=== PATIENT | female | born 1990 | race American Indian/Alaskan Native ===

== ENCOUNTER 2018-07-22 18:22 | Inpatient (IN) | payer OTHER ==
[2016-07-03 21:17] VITALS: BMI 31.2
[2018-07-22] MEDS: Lactated Ringer's 1,000 ML IV SCH (19:30)
[2018-07-22] MEDS ORDERED: Lactated Ringer's 1,000 ML IV SCH (19:30)
[2018-07-22] MEDS ORDERED: Penicillin G 5 Million Unit Vial IVPB ONE ×2 (19:53→20:21)
[2018-07-22] MEDS ORDERED: Lactated Ringer's 1,000 ML IV ONE (19:53)
[2018-07-22 20:50] LABS: BASO % 0.2 % (0.0-2.0); EOS % 0.3 % (0.0-4.0); HEMOGLOBIN 13.5 g/dL (11.0-16.0); LYMPH # 1.3 K/uL (1.0-4.3); LYMPH % 20.6 % (20.0-40.0); MEAN CELL VOLUME 85.2 fL (81.0-99.0); MEAN CORPUSCULAR HEMOGLOBIN 30.1 pg (27.0-31.0); MEAN CORPUSCULAR HGB CONC 35.4 g/dL (33.0-37.0); MEAN PLATELET VOLUME 10.2 fL (7.2-11.7); MONO # 0.6 K/uL (0.0-0.8); MONO % 8.8 % (0.0-10.0); NEUT # 4.4 K/uL (1.8-7.0); NEUT % 70.1 % (50.0-75.0); NRBC % 0.2 % (0.0-2.0); RBC 4.49 Mil/uL (3.80-5.20); RED CELL DISTRIBUTION WIDTH 14.2 % (11.5-14.5); WHITE BLOOD COUNT 6.3 K/uL (4.8-10.8)
[2018-07-22 20:52] LABS: SQUAMOUS EPITHIAL 1 /hpf (0-5); URINE BILIRUBIN NEGATIVE (NEGATIVE); URINE BLOOD NEGATIVE (NEGATIVE); URINE CLARITY Clear (Clear); URINE COLOR Yellow (YELLOW); URINE GLUCOSE (UA) NORMAL (Normal); URINE LEUKOCYTE ESTERASE NEG Leu/uL (Negative); URINE PROTEIN NEGATIVE (NEGATIVE); URINE UROBILINOGEN NORMAL mg/dL (0.2-1.0)
--- NOTE | 2018-07-22 21:04 | OBHP ---
Datetime: 07/22/2018 20:56 IP Adm Impression: Term, intrauterine ; No Active Labor IP Admit Plan: Admit to unit; Initiate labor protocol Admit Comment, IP Provider: 27 yo female with an IUP at 40.1 weeks Admitted for IOL per MFM recommendation and for IUGR NST Reavtive/Ocassional contractions. Cervidil placed with ease PMHx, Negative PSHx, Negative MEDS, PNV NKDA Social HX Negative x 3 Consented for Pelvic Type - PN: Adequate Extremities - PN: Normal Abdomen - PN: Normal Back - PN: Normal Breast - PN: Not Done Lungs - PN: Normal Heart - PN: Normal Thyroid - PN: Normal Neurologic - PN: Normal HEENT - PN: Normal General - PN: Normal Presentation-Admit: Vertex FHR - Baseline A Provider: 140 Membranes, Provider: Intact Contraction Comments Provider: Ocassional Gestation - Est Wks by US: 40.1 EGA AdmitDate IP: 40.1 Vital Signs Provider: Reviewed; Within Normal Limits IP Chief Complaint: Scheduled induction of labor NICHD Variability Prov Fetus A: Moderate 6-25bpm NICHD Accel Fetus A IP Provider: 10X10 NICHD Decel Fetus A IP Provider: None Dilatation, Provider: 0 Effacement, Provider: 30 Station, Provider: -3 Genitourinary Exam: Normal DTRs - PN: Normal
[2018-07-22 21:11] LABS: ALB/GLOB RATIO 1.1 (1.0-2.1); ALBUMIN 3.6 g/dL (3.5-5.0); ALT/SGPT 9 U/L (9-52); AST/SGOT 15 U/L (14-36); BLOOD UREA NITROGEN 13 mg/dL (7-17); CALCIUM 9.5 mg/dl (8.6-10.4); GFR NON-AFRICAN AMERICAN > 60
[2018-07-23] MEDS: Lactated Ringer's 1,000 ML IV SCH (05:15)
--- NOTE | 2018-07-23 07:38 | OBADHP ---
Datetime: 07/22/2018 20:56 Admit Comment, IP Provider: 27 yo female with an IUP at 40.1 weeks Admitted for IOL per MFM recommendation and for IUGR NST Reactive/Ocassional contractions Unfavorable cervix. Cervidil placed with ease PMHx, Negative PSHx, Negative MEDS, PNV NKDA Social HX Negative x 3 Consented for Admit Pelvic Type - PN: Adequate Extremities - PN: Normal Abdomen - PN: Normal Back - PN: Normal Breast - PN: Not Done Lungs - PN: Normal Heart - PN: Normal Thyroid - PN: Normal Neurologic - PN: Normal HEENT - PN: Normal General - PN: Normal Presentation-Admit: Vertex FHR - Baseline A Provider: 140 Membranes, Provider: Intact Contraction Comments Provider: Ocassional Gestation - Est Wks by US: 40.1 Vital Signs Provider: Reviewed; Within Normal Limits IP Chief Complaint: Scheduled induction of labor NICHD Variability Prov Fetus A: Moderate 6-25bpm NICHD Accel Fetus A IP Provider: 10X10 NICHD Decel Fetus A IP Provider: None Dilatation, Provider: 0 Effacement, Provider: 30 Station, Provider: -3 Genitourinary Exam: Normal DTRs - PN: Normal EGA AdmitDate IP: 40.1 IP Adm Impression: Term, intrauterine ; No Active Labor IP Admit Plan: Admit to unit; Initiate labor protocol
--- NOTE | 2018-07-23 07:47 | OBPN ---
Datetime: 07/22/2018 20:56 IP Progress Impression: Reassuring heart rate; Reactive non-stress test IP Informed Consent Obtain: Vaginal Delivery IP Procedures: Sterile Vag Exam IP Progress Plan: Continue present management; Induction; Antibiotic therapy Membranes, Provider: Intact Contraction Comments Provider: Ocassional FHR - Baseline A Provider: 140 Gestation - Est Wks by US: 40.1 Presentation-Admit: Vertex IP Progress Note Comment: SVE /-3 VSS Afebrile Cervidil removed Will give liquid diet FHT's reactive and reassuring Will continue GBS prophylaxis Discuss with patient benefits and riska of Epidural and she will consider it Dr. Adams here and will assess patient for next step Vital Signs Provider: Reviewed; Within Normal Limits NICHD Accel Fetus A IP Provider: 10X10 NICHD Variability Prov Fetus A: Moderate 6-25bpm Dilatation, Provider: 0 Effacement, Provider: 30 Station, Provider: -3 NICHD Decel Fetus A IP Provider: None
[2018-07-23] MEDS ORDERED: Bupivacaine HCl/FentaNYL Cit 100 ML EPI ONE (08:47)
[2018-07-23] MEDS ORDERED: Oxytocin 30 UNIT 30 UNITS/500 ML BAG IV SCH (09:15)
[2018-07-23] MEDS ORDERED: Oxytocin 30 UNIT 30 UNITS/500 ML BAG IV ONE (09:18)
[2018-07-23] MEDS ORDERED: Oxycodone/Acetaminophen 5/325 mg Tab PO PRN ×2 (13:25)
--- NOTE | 2018-07-23 16:00 | OBDS ---
DELIVERY PERSONNEL Delivery Doctor: Joelle Adams MD [employer] Operator: Georgina Francois RN Anesthesiologist: Dr Chau MATERNAL INFORMATION Delivery Anesthesia: Epidural Medications in Delivery: 30 units of pitocin in 500 ml NS Estimated Blood Loss (ml): 200 Placenta Cultured: Yes Maternal Complications: None Provider Comments: pt was fully dilated and pushing, atruatmc spontenaoud eilvery of head cmpound le ft hand, no nuchal cord noted. atraumatic, spontnaoeu delivery of anterior followed by posterior shou lder followed by delivery of elvie body.b oth oral and nasal passages of elvie baby were bulb suctined. u mbical cord was calmped adn cut. Baby handed to mother on abdomen wtih rn asssiant. cord blood adn co rd gases collected adn sent x 2. spontaneou delivery of itnact placenta with membranes. fundus firm. good hemsetoiss, no compilcations. live femlae ifnant agpars 9,9 weigh of 7lbs1 oucnes ebl 200ml no complications LABOR SUMMARY EDC: 07/21/2018 00:00 No. Babies in Womb: 1 LABOR INFORMATION Reason for Induction: Other Reason for Induction Other: IUGR Onset of Labor: 07/23/2018 12:17 Complete Dilatation: 07/23/2018 12:51 Cervical Ripening Agents: Cervidil Oxytocin: Augmentation Group B Beta Strep: Positive Antibiotics # of Doses: 4 Antibiotics Time of Last Dose: 0809 Steroids Given: None MEMBRANES Membranes Rupture Method: Artificial Rupture of Membranes: 07/23/2018 10:02 Length of Rupture (hrs): 3.07 Amniotic Fluid Color: Clear Amniotic Fluid Amount: Moderate Amniotic Fluid Odor: None STAGES OF LABOR Stage 1 hrs: 0 Stage 1 min: 34 Stage 2 hrs: 0 Stage 2 min: 15 Stage 3 hrs: 0 Stage 3 min: 4 Total Time in Labor hrs: 0 Total Time in Labor min: 53 VAGINAL DELIVERY Episiotomy: None Laceration Extension: N/A Laceration Type: None Laceration Repair Note: pt was fully dilated and pushing, atruatmc spontenaoud eilvery of head cmpou nd left hand, no nuchal cord noted. atraumatic, spontnaoeu delivery of anterior followed by posterior shoulder followed by delivery of elvie body.b oth oral and nasal passages of elvie baby were bulb suctin ed. umbical cord was calmped adn cut. Baby handed to mother on abdomen wtih rn asssiant. cord blood a dn cord gases collected adn sent x 2. spontaneou delivery of itnact placenta with membranes. fundus f irm. good hemsetoiss, no compilcations. live femlae ifnant agpars 9,9 weigh of 7lbs1 oucnes ebl 200ml no complications Initial Vag Sponge Count: 11 Final Vag Sponge Count: 11 Initial Vag Sharps Count: 0 Final Vag Sharps Count: 0 Sponge Count Correct: Yes Sharps Count Correct: Yes BABY A INFORMATION Delivery Date/Time: 07/23/2018 13:06 Method of Delivery: Vaginal Born in Route : No : N/A Forceps: N/A Vacuum Extraction: N/A Shoulder Dystocia : No SHOULDER DYSTOCIA BABY A Delivery Date/Time: 07/23/2018 13:06 PRESENTATION/POSITION BABY A Presentation: Cephalic Cephalic Presentation: Vertex Vertex Position: Right Occipital Anterior Breech Presentation: N/A PLACENTA INFORMATION BABY A Placenta Delivery Time : 07/23/2018 13:10 Placenta Method of Delivery: Spontaneous Placenta Status: Delivered SCORES BABY A Heart Rate 1 min: >100 bpm Resp Effort 1 min: Good Cry Reflex Irritability 1 min: Cough or Sneeze or Pulls Away Muscle Tone 1 min: Active Motion Color 1 min: Body [place], Extremities Blue Resuscitation Effort 1 min: Tactile Stimulation SCORE 1 MIN: 9 Heart Rate 5 min: >100 bpm Resp Effort 5 min: Good Cry Reflex Irritability 5 min: Cough or Sneeze or Pulls Away Muscle Tone 5 min: Active Motion Color 5 min: Body [place], Extremities Blue Resuscitation Effort 5 min: N/A SCORE 5 MIN: 9 INFANT INFORMATION BABY A Gestational Age at Delivery: 40.2 Gestational Status: Term Outcome : Liveborn Condition : Stable Sex: Female IDENTIFICATION/MEDS BABY A ID Band Number: [id number] ID Band Location: Left Leg; Left Arm Sensor Applied: Yes Sensor Number: [id number] Sensor Location : Cord Clamp Vitamin K Given : Not Given Erythromycin Given: Not Given WEIGHT/LENGTH BABY A Birthweight (gms): 3210 Infant Weight (lb): 7 Infant Weight (oz): 1 Infant Length Inches: 19.00 Infant Length cms: 48.3 CORD INFORMATION BABY A No. Cord Vessels: 3 Nuchal Cord : N/A Cord pH Baby Venous: 7.30 Cord Blood Taken: Yes Suction: Mouth; Nose ASSESSMENT BABY A Complications: None Physical Findings at Delivery: Molding of the Head Respirations: Appears Normal Automotive Services Manager/ALS Called : No Care By: Aissatou Couch RN Transferred To: Remains with Mother
--- NOTE | 2018-07-23 16:11 | OBDS ---
DELIVERY PERSONNEL Delivery Doctor: Joelle Adams MD [employer]er: Georgina Francois RN Anesthesiologist: Dr Chau MATERNAL INFORMATION Delivery Anesthesia: Epidural Medications in Delivery: 30 units of pitocin in 500 ml NS Estimated Blood Loss (ml): 200 Placenta Cultured: Yes Maternal Complications: None Provider Comments: pt was fully dilated and pushing, atruatmc spontenaoud eilvery of head cmpound le ft hand, no nuchal cord noted. atraumatic, spontnaoeu delivery of anterior followed by posterior shou lder followed by delivery of elvie body.b oth oral and nasal passages of elvie baby were bulb suctined. u mbical cord was calmped adn cut. Baby handed to mother on abdomen wtih rn asssiant. cord blood adn co rd gases collected adn sent x 2. spontaneou delivery of itnact placenta with membranes. fundus firm. good hemsetoiss, no compilcations. live femlae ifnant agpars 9,9 weigh of 7lbs1 oucnes ebl 200ml no complications LABOR SUMMARY EDC: 07/21/2018 00:00 No. Babies in Womb: 1 LABOR INFORMATION Reason for Induction: Other Reason for Induction Other: IUGR Onset of Labor: 07/23/2018 12:17 Complete Dilatation: 07/23/2018 12:51 Cervical Ripening Agents: Cervidil Oxytocin: Augmentation Group B Beta Strep: Positive Antibiotics # of Doses: 4 Antibiotics Time of Last Dose: 0809 Steroids Given: None MEMBRANES Membranes Rupture Method: Artificial Rupture of Membranes: 07/23/2018 10:02 Length of Rupture (hrs): 3.07 Amniotic Fluid Color: Clear Amniotic Fluid Amount: Moderate Amniotic Fluid Odor: None STAGES OF LABOR Stage 1 hrs: 0 Stage 1 min: 34 Stage 2 hrs: 0 Stage 2 min: 15 Stage 3 hrs: 0 Stage 3 min: 4 Total Time in Labor hrs: 0 Total Time in Labor min: 53 VAGINAL DELIVERY Episiotomy: None Laceration Extension: N/A Laceration Type: None Initial Vag Sponge Count: 11 Final Vag Sponge Count: 11 Initial Vag Sharps Count: 0 Final Vag Sharps Count: 0 Sponge Count Correct: Yes Sharps Count Correct: Yes BABY A INFORMATION Infant Delivery Date/Time: 07/23/2018 13:06 Method of Delivery: Vaginal Born in Route : No : N/A Forceps: N/A Vacuum Extraction: N/A Shoulder Dystocia : No SHOULDER DYSTOCIA BABY A Infant Delivery Date/Time: 07/23/2018 13:06 PRESENTATION/POSITION BABY A Presentation: Cephalic Cephalic Presentation: Vertex Vertex Position: Right Occipital Anterior Breech Presentation: N/A PLACENTA INFORMATION BABY A Placenta Delivery Time : 07/23/2018 13:10 Placenta Method of Delivery: Spontaneous Placenta Status: Delivered SCORES BABY A Heart Rate 1 min: >100 bpm Resp Effort 1 min: Good Cry Reflex Irritability 1 min: Cough or Sneeze or Pulls Away Muscle Tone 1 min: Active Motion Color 1 min: Body [place], Extremities Blue Resuscitation Effort 1 min: Tactile Stimulation SCORE 1 MIN: 9 Heart Rate 5 min: >100 bpm Resp Effort 5 min: Good Cry Reflex Irritability 5 min: Cough or Sneeze or Pulls Away Muscle Tone 5 min: Active Motion Color 5 min: Body [place], Extremities Blue Resuscitation Effort 5 min: N/A SCORE 5 MIN: 9 INFORMATION BABY A Gestational Age at Delivery: 40.2 Gestational Status: Term Infant Outcome : Liveborn Infant Condition : Stable Sex: Female IDENTIFICATION/MEDS BABY A ID Band Number: [id number] ID Band Location: Left Leg; Left Arm Sensor Applied: Yes Sensor Number: [id number] Sensor Location : Cord Clamp Vitamin K Given : Not Given Erythromycin Given: Not Given WEIGHT/LENGTH BABY A Infant Birthweight (gms): 3210 Infant Weight (lb): 7 Weight (oz): 1 Infant Length Inches: 19.00 Length cms: 48.3 CORD INFORMATION BABY A No. Cord Vessels: 3 Nuchal Cord : N/A Infant Cord pH Baby Venous: 7.30 Cord Blood Taken: Yes Infant Suction: Mouth; Nose ASSESSMENT BABY A Complications: None Physical Findings at Delivery: Molding of the Head Infant Respirations: Appears Normal Respiratory Medicine Physician/ALS Called : No Care By: Aissatou Couch RN Transferred To: Remains with Mother
[2018-07-24 08:28] LABS: BASO % 0.5 % (0.0-2.0); EOS # 0.1 K/uL (0.0-0.7); EOS % 0.9 % (0.0-4.0); HEMOGLOBIN 12.3 g/dL (11.0-16.0); LYMPH # 1.5 K/uL (1.0-4.3); LYMPH % 25.6 % (20.0-40.0); MEAN CELL VOLUME 86.1 fL (81.0-99.0); MEAN CORPUSCULAR HEMOGLOBIN 29.7 pg (27.0-31.0); MEAN CORPUSCULAR HGB CONC 34.5 g/dL (33.0-37.0); MEAN PLATELET VOLUME 9.5 fL (7.2-11.7); MONO # 0.5 K/uL (0.0-0.8); NEUT # 3.8 K/uL (1.8-7.0); RBC 4.13 Mil/uL (3.80-5.20); RED CELL DISTRIBUTION WIDTH 14.2 % (11.5-14.5)
[2018-07-24] MEDS: Multiple Vitamins Tab PO SCH (09:40)
--- NOTE | 2018-07-24 15:48 | OBPPN ---
Datetime: 07/24/2018 15:43 PP Pain Prov: Within normal limits PP Nausea Prov: Denies PP Flatus Prov: Yes PP Abdomen/Uterus Prov: Normal PP Lochia Prov: Normal PP Extremities Prov: Normal PP Comments Phys Exam Prov: fudius below umblicus PP Impression Prov: Normal progression PP Plan Prov: Continue present management PP Progress Note Prov: pt was seen at [facility] undeer control,no n/v, tolerating deit, min lochi a ppd#1 s/p cont pain cont pp care f/ Vital Signs Provider PP: Reviewed; Within Normal Limits
[2018-07-25 09:27] VITALS: BP 97/56
--- NOTE | 2018-07-25 10:02 | OBDCSUM ---
Datetime: 07/25/2018 10:00 Discharged to, Provider: Home Follow up at, Provider: Clinic Disch Instr Activity: Normal activity Disch Instr Diet: Regular Discharge Instructions, Provider: Routine instructions given Discharge Diagnosis, Provider: Term Delivered Discharge Time: 07/25/2018 12:00 Follow up in weeks, Provider: 6 weeks or prn Disch Referrals: None Contraception discussed, Prov: Yes Disch Activity Restrictions: No exercising; No lifting; Minimize stair-climbing; No sexual activity; Nothing in vagina - [place], tampons, douche Discharge Comment, Provider: PPD # 2 No complaints Feels fine Breastand bottle feeding and advised to breastfeed only Counseled to increase po water intake and to feed baby Q 2 hrs for 15 mins on each breast and thro ughout 24 hrs a day Stable and Satisfactory condition and recovery F/Up in clinic in 6 weeks or as needed Not sure on contraceptives Continue PNV daily x 4-6 more months Rx for Motrin for pain as needed Contraception after Delivery: Undecided
--- NOTE | 2018-07-25 10:02 | OBPPN ---
Datetime: 07/25/2018 09:56 PP Pain Prov: Within normal limits PP Nausea Prov: Denies PP Flatus Prov: Yes PP BM Prov: Yes PP Breasts Prov: Not Done PP Heart Prov: Normal PP Lungs Prov: Normal PP Abdomen/Uterus Prov: Normal PP Lochia Prov: Normal PP Vulva/Perineum Prov: Normal PP CVA Tenderness Prov: Normal PP Extremities Prov: Normal PP C/S Incision Prov: Not Applicable PP Progress Prov: Normal PP Comments Phys Exam Prov: Fundus below Umbilicus, firm and non-tender PP Impression Prov: Normal progression PP Plan Prov: Continue present management; Discharge PP Progress Note Prov: PPD # 2 No complaints Feels fine Breastand bottle feeding and advised to breastfeed only Counseled to increase po water intake and to feed baby Q 2 hrs for 15 mins on each breast and thro ughout 24 hrs a day Stable and Satisfactory condition and recovery F/Up in clinic in 6 weeks or as needed Not sure on contraceptives Continue PNV daily x 4-6 more months Rx for Motrin for pain as needed IP PP Procedures: None Vital Signs Provider PP: Reviewed
[2018-07-25] MEDS: Multiple Vitamins Tab PO SCH (10:16)
[2018-07-25 22:20] VITALS: PULSE 70; RESP 20; TEMP 98.1; O2SAT 99
== END 2018-07-25 13:30 | disposition home or self-care (01) | DRG 373 ==
LOC: C.EROB 18:22 → C.4D 18:48 → UNDOADMIN 18:48 → C.4D 19:50 → C.4M 07-23 16:15
PROVIDERS: ADMIT Obstetrics & Gynecology; ATTEND Obstetrics & Gynecology
PROC: 10E0XZZ Delivery of Products of Conception, External Approach (ICD-10-PCS; principal; 2018-07-23)
PROC: 3E0P7VZ Introduction of Hormone into Female Reproductive, Via Natural or Artificial Opening (ICD-10-PCS; 2018-07-23)
PROC: 10907ZC Drainage of Amniotic Fluid, Therapeutic from Products of Conception, Via Natural or Artificial Opening (ICD-10-PCS; 2018-07-23)
DX: O36.5930 Maternal care for other known or suspected poor fetal growth, third trimester, not applicable or unspecified (principal); Z3A.40 40 weeks gestation of pregnancy; Z37.0 Single live birth